=== PATIENT | male | born 1955 | race Two or more races ===

== ENCOUNTER 2021-11-16 14:43 | Emergency (ER) | payer OTHER ==
[~2021-11-16] VITALS: Ht 172.7 cm; Wt 113.4 kg
[~2021-11-16 14:43] MED LIST: CIPRO500 MG PO; LEVSIN/SL0.125 MG PO; PROTONIX40 MG PO
[2021-11-16] MEDS ORDERED: GLIPIZIDE XL5 MG PO (15:19)
[2021-11-16] MEDS ORDERED: CRESTOR10 MG PO (15:19)
[2021-11-16] MEDS ORDERED: KAPSPARGO SPRIN25 MG PO (15:20)
== END 2021-11-16 18:42 | disposition home or self-care (01) ==
LOC: ER 14:43
DX: R10.13 Epigastric pain (principal); K57.90 Diverticulosis of intestine, part unspecified, without perforation or abscess without bleeding